=== PATIENT | female | born 1970 | race Caucasian/White ===

== ENCOUNTER 2021-11-09 16:59 | Emergency (ER) | payer SELFPAY ==
[~2021-11-09] VITALS: Ht 167.6 cm; Wt 86.2 kg
--- NOTE | 2021-11-09 17:11 | NUR ---
PT BIBA AND TAKEN TO BED 9
[2021-11-09 17:17] VITALS: BP 149/83
--- NOTE | 2021-11-09 17:24 | NUR ---
DR. GIBSON BEDSIDE EVALUATING PT
--- NOTE | 2021-11-09 17:35 | NUR ---
URINE COLLECTED AND WALKED TO LAB
--- NOTE | 2021-11-09 17:41 | NUR ---
51Y FEMALE BIBA FROM HOME DUE TO DIZZINESS X1 HR. PER PATIENT SHE TOOK 2 TYLENOL AT HOME TO HELP WITH DIZZINESS. PER EMS PATIENT WAS SMOKING "CIGARETTE" UPON ARRIVAL. PT IS ALSO C/O LIGHTHEADNESS. PT IS AMBULATORY WITH STEADY GAIT. PT DENIES ANY CHEST PAIN, SOB, FEVER/CHILLS, N/V. PT A&OX4. PMH: DM, SCHIZOPHRENIA NKA
--- NOTE | 2021-11-09 17:44 | NUR ---
SISTER CONTACT INFORMATION KENDALL
--- NOTE | 2021-11-09 18:05 | NUR ---
18G IV ESTABLISHED IN R AC AND BLOODWORK COLLECTED. [facility]
[2021-11-09 18:21] LABS: BARBITURATE, URINE NEGATIVE ng/ml (NEG <=200); BENZODIAZEPINE, URINE NEGATIVE ng/mL (NEG <=200); CANNABINOID, URINE POSITIVE ng/mL (NEG <=50); COCAINE, URINE NEGATIVE ng/mL (NEG <=300); OPIATE, URINE NEGATIVE ng/mL (NEG <=2000); PHENCYCLIDINE SCREEN,URINE NEGATIVE ng/mL (NEG <=25)
[2021-11-09 18:29] LABS: HEMATOCRIT 40.2 % (36-48); HEMOGLOBIN 13.5 g/dL (12.0-16.0); LYMPHOCYTES # (AUTO) 1.8 K/uL (2.5-16.5); LYMPHOCYTES % (AUTO) 18.7 % (20.5-51.1); MEAN CORPUSCULAR HEMOGLOBIN 28 pg (27-31); MEAN CORPUSCULAR HGB CONC 34 g/dL (33-37); MEAN CORPUSCULAR VOLUME 83.3 fL (80-94); MONOCYTES # (AUTO) 0.8 K/uL (0.8-1.0); MONOCYTES % (AUTO) 7.9 % (1.7-9.3); NEUTROPHILS # (AUTO) 7.2 K/uL (1.8-7.7); NEUTROPHILS % (AUTO) 73.4 % (42.2-75.2); PLATELET COUNT (AUTO) 303 K/uL (140-450); RED BLOOD CELL COUNT(AUTO) 4.82 MIL/uL (4.20-5.40); RED CELL DISTRIBUTION WIDTH 14.7 % (11.6-13.7); WHITE BLOOD COUNT (AUTO) 9.8 K/uL (4.8-10.8)
[2021-11-09 18:46] LABS: ALBUMIN 3.8 g/dL (3.4-5.0); ANION GAP 12.7 (8-16); ASPARTATE AMINOTRANSFERASE 8 U/L (15-37); CARBON DIOXIDE 27.5 mmol/L (21-32); CHLORIDE 102 mmol/L (98-107); CREATININE 0.8 mg/dL (0.6-1.3); GFR ARICAN-AMERICAN 98 mL/min (>90); GLUCOSE 174 mg/dL (74-106); POTASSIUM 4.2 mmol/L (3.5-5.1); SODIUM SERUM 138 mmol/L (136-145); TOTAL BILIRUBIN 0.2 mg/dL (0.0-1.0); UREA NITROGEN, BLOOD 8 mg/dL (7-18)
--- NOTE | 2021-11-09 19:02 | NUR ---
Patient appears to be resting comfortably in bed. Vital Signs within normal limits. Respirations even and unlabored.
[2021-11-09 19:18] VITALS: BP 100/62
--- NOTE | 2021-11-09 19:18 | NUR ---
CONTACTED PATIENT SISTER KENDALL AND INFORMED PATIENT IS READY FOR D/C. PER SISTER SHE WILL BE HERE SHORTLY TO [employer] ADMINISTRATOR HER SISTER
--- NOTE | 2021-11-09 19:19 | NUR ---
Patient discharged with v/s stable. Written and verbal after care instructions given and explained. Patient verbalized understanding. Ambulatory with steady gait. All questions addressed prior to discharge. Advised to follow up with PMD.
== END 2021-11-09 19:19 | disposition home or self-care (01) ==
LOC: MED 16:59
DX: R42 Dizziness and giddiness (principal); R53.1 Weakness; E11.9 Type 2 diabetes mellitus without complications; F20.9 Schizophrenia, unspecified
CPT/HCPCS: 36415; 80053; 80305; 84484; 85025; 93005; 99285; G0482